=== PATIENT | male | born 1965 | race Caucasian/White ===

== ENCOUNTER 2021-08-22 18:27 | Emergency (ER) | payer OTHER, MEDICAID ==
[2021-08-22 21:04] LABS: HEMOGLOBIN 14.4 gm/dl (14.0-17.5); RED BLOOD COUNT 4.25 M/UL (4.20-5.50); WHITE BLOOD COUNT 5.7 K/UL (4.5-11.0)
[2021-08-22 21:22] LABS: BUN/CREATININE RATIO 18 (0-10)
== END 2021-08-22 23:41 | disposition home or self-care (01) ==
LOC: ER1 18:27
PROVIDERS: Student in an Organized Health Care Education/Training Program
DX: F07.81 Postconcussional syndrome (principal); E78.5 Hyperlipidemia, unspecified; V89.2XXA Person injured in unspecified motor-vehicle accident, traffic, initial encounter
CPT/HCPCS: 70450; 80053; 85025; 99284